=== PATIENT | male | born 1955 | race Caucasian/White ===

== ENCOUNTER 2021-10-13 20:03 | Emergency (ER) | payer MEDICARE ==
[~2021-10-13] VITALS: Ht 177.8 cm; Wt 100.0 kg
[2021-10-13] MEDS ORDERED: cefTRIAXone 1 GM PRE-MIX 50 ML IV ONE (20:15)
[2021-10-13] MEDS ORDERED: LACTATED RINGERS 1,000 ML IV ONE (20:15)
[2021-10-13] MEDS ORDERED: ACETAMINOPHEN 500 MG TAB (TYLENOL) PO PRN (20:15)
[2021-10-13] MEDS ORDERED: AZITHROMYCIN INJECTION 500 MG in NS (IVPB) 250 ML IV ONE (20:15)
[2021-10-13] MEDS ORDERED: ACETAMINOPHEN 500 MG TAB (TYLENOL) PO ONE (20:15)
--- NOTE | 2021-10-13 20:15 | ED General ---
General Stated Complaint: FEVER, BODYACHES Source of Information: Patient Exam Limitations: No Limitations History of Present Illness Date Seen by Provider: Oct 13, 2021 Time Seen by Provider: 20:05 Initial Comments Patient ER by EMS with chief complaint of body aches fevers chills shortness of air. He had a week to 10-day cough nonproductive except for just a little bit of sputum/phlegm. Has had fever T-max of 105. Took some ibuprofen this morning. No nausea or vomiting. No known sick contacts. He says he donates blood every month and had a negative Covid test a couple weeks ago so he did not plan to get checked there. He went to the clinic got some refills of his medications and they thought maybe he had a sinus infection and put him on some antibiotics for that. He does not feel any better. No nausea vomiting or diarrhea. No history of COPD or lung disease. Not a smoker. Allergies and Home Medications Allergies Coded Allergies: No Known Drug Allergies (Unverified , 10/13/21) Patient Home Medication List Home Medication List Reviewed: Yes Review of Systems Review of Systems Constitutional: No chills, No diaphoresis EENTM: No ear discharge, No ear pain Respiratory: cough, phlegm, short of breath Cardiovascular: No chest pain, No edema, No palpitations Gastrointestinal: No abdominal pain, No nausea, No vomiting Genitourinary: No discharge, No dysuria Musculoskeletal: No back pain, No joint pain Skin: No pruritus, No rash Psychiatric/Neurological: Denies Headache, Denies Numbness All Other Systems Reviewed Negative Unless Noted: Yes Past Oviylqx-Hgxyat-Gkpkkg Hx Patient Social History Tobacco Use?: No Use of E-Cig and/or Vaping dev: No Substance use?: No Alcohol Use?: Yes Alcohol type: Beer Alcohol Frequency: Rarely Physical Exam-Suspected Sepsis Physical Exam Vital Signs Vital Signs - First Documented 10/13/21 20:05 Temp 38.2 Pulse 113 Resp 20 B/P (MAP) 161/115 (130) Pulse Ox 95 O2 Delivery Room Air Capillary Refill : Height, Weight, BMI Height: '" Weight: lbs. oz. kg; BMI Method: General Appearance: WD/WN, Mild Distress Eyes: Bilateral Eye Normal Inspection, Bilateral Eye PERRL, Bilateral Eye EOMI HEENT: PERRL/EOMI, Pharynx Normal, Moist Mucous Membranes Neck: Full Range of Motion, Normal Inspection Respiratory: Lungs Clear, Normal Breath Sounds, No Accessory Muscle Use, No Respiratory Distress Cardiovascular: Regular Rate, Rhythm, No Edema, Normal Peripheral Pulses Extremity: Normal Capillary Refill, Normal Inspection, Non Tender, No Pedal Edema Neurologic/Psychiatric: Alert, Oriented x3, No Motor/Sensory Deficits Skin: normal color, warm/dry Focused Exam Lactate Level 10/13/21 20:19: Lactic Acid Level 1.50 Lactic Acid Level Laboratory Tests Test 10/13/21 20:19 Lactic Acid Level 1.50 MMOL/L (0.50-2.00) Progress/Results/Core Measures Suspected Sepsis SIRS Temperature: Pulse: Respiratory Rate: Laboratory Tests 10/13/21 20:19: White Blood Count 5.4 Blood Pressure / Mean: 10/13/21 20:19: Lactic Acid Level 1.50 Laboratory Tests 10/13/21 20:19: Creatinine 1.02, INR Comment 1.0, Platelet Count 245, Total Bilirubin 0.5 Results/Orders Lab Results Laboratory Tests Test 10/13/21 20:10 10/13/21 20:19 Range/Units Influenza Type A (RT-PCR) Detected H Not Detecte Influenza Type B (RT-PCR) Not Detected Not Detecte SARS-CoV-2 RNA (RT-PCR) Detected H Not Detecte White Blood Count 5.4 4.3-11.0 10^3/uL Red Blood Count 4.77 4.30-5.52 10^6/uL Hemoglobin 14.5 13.3-17.7 g/dL Hematocrit 43 40-54 % Mean Corpuscular Volume 90 80-99 fL Mean Corpuscular Hemoglobin 30 25-34 pg Mean Corpuscular Hemoglobin Concent 34 32-36 g/dL Red Cell Distribution Width 13.9 10.0-14.5 % Platelet Count 245 130-400 10^3/uL Mean Platelet Volume 9.5 9.0-12.2 fL Immature Granulocyte % (Auto) 0 % Neutrophils (%) (Auto) 83 H 42-75 % Lymphocytes (%) (Auto) 6 L 12-44 % Monocytes (%) (Auto) 9 0-12 % Eosinophils (%) (Auto) 1 0-10 % Basophils (%) (Auto) 0 0-10 % Neutrophils # (Auto) 4.5 1.8-7.8 10^3/uL Lymphocytes # (Auto) 0.3 L 1.0-4.0 10^3/uL Monocytes # (Auto) 0.5 0.0-1.0 10^3/uL Eosinophils # (Auto) 0.0 0.0-0.3 10^3/uL Basophils # (Auto) 0.0 0.0-0.1 10^3/uL Immature Granulocyte # (Auto) 0.0 0.0-0.1 10^3/uL Neutrophils % (Manual) 89 % Lymphocytes % (Manual) 4 % Monocytes % (Manual) 6 % Eosinophils % (Manual) 1 % Blood Morphology Comment NORMAL Prothrombin Time 13.8 12.2-14.7 SEC INR Comment 1.0 0.8-1.4 Activated Partial Thromboplast Time 33 24-35 SEC Sodium Level 138 135-145 MMOL/L Potassium Level 4.0 3.6-5.0 MMOL/L Chloride Level 105 98-107 MMOL/L Carbon Dioxide Level 22 21-32 MMOL/L Anion Gap 11 5-14 MMOL/L Blood Urea Nitrogen 10 7-18 MG/DL Creatinine 1.02 0.60-1.30 MG/DL Estimat Glomerular Filtration Rate 82 BUN/Creatinine Ratio 10 Glucose Level 95 70-105 MG/DL Lactic Acid Level 1.50 0.50-2.00 MMOL/L Calcium Level 9.2 8.5-10.1 MG/DL Corrected Calcium 9.0 8.5-10.1 MG/DL Total Bilirubin 0.5 0.1-1.0 MG/DL Aspartate Amino Transf (AST/SGOT) 21 5-34 U/L Alanine Aminotransferase (ALT/SGPT) 20 0-55 U/L Alkaline Phosphatase 103 40-136 U/L Total Protein 7.3 6.4-8.2 GM/DL Albumin 4.2 3.2-4.5 GM/DL My Orders Orders - EMMANUEL MONACO Acetaminophen Tablet (Tylenol Tablet) (10/13/21 20:15) Cbc With Automated Diff (10/13/21 20:15) Comprehensive Metabolic Panel (10/13/21 20:15) Blood Culture (10/13/21 20:15) Sputum Culture (10/13/21 20:15) Urinalysis (10/13/21 20:15) Urine Culture (10/13/21 20:15) Protime With Inr (10/13/21 20:15) Partial Thromboplastin Time (10/13/21 20:15) Chest 1 View, Ap/Pa Only (10/13/21 20:15) Acetaminophen Tablet (Tylenol Tablet) (10/13/21 20:15) Ed Iv/Invasive Line Start (10/13/21 20:15) Ed Iv/Invasive Line Start (10/13/21 20:15) Vital Signs Adult Sepsis Patie Q15M (10/13/21 20:15) O2 (10/13/21 20:15) Remove Rings In Anticipation O (10/13/21 20:15) Lactic Acid Analyzer (10/13/21 20:15) Influenza A And B By Pcr (10/13/21 20:15) Lactated Ringers (Lr 1000 Ml Iv Solution (10/13/21 20:15) Ceftriaxone 1 Gm Pre-Mix (Rocephin 1 Gm (10/13/21 20:15) Azithromycin Injection (Zithromax Inject (10/13/21 20:15) Covid 19 Inhouse Test (10/13/21 20:15) Manual Differential (10/13/21 20:19) Medications Given in ED Current Medications Medications Dose Ordered Sig/Danilo Route Start Time Stop Time Status Last Admin Dose Admin Acetaminophen 1,000 mg ONCE ONCE PO 10/13/21 20:15 10/13/21 20:16 DC 10/13/21 20:41 1,000 MG Azithromycin 500 mg/Sodium Chloride 255 ml @ 250 mls/hr ONCE ONCE IV 10/13/21 20:15 10/13/21 21:16 DC 10/13/21 21:35 250 MLS/HR Ceftriaxone Sodium/Dextrose 50 ml @ 100 mls/hr ONCE ONCE IV 10/13/21 20:15 10/13/21 20:44 DC 10/13/21 20:58 100 MLS/HR Lactated Ringer's 1,000 ml @ 0 mls/hr Q0M ONCE IV 10/13/21 20:15 10/13/21 20:18 DC 10/13/21 20:42 1,000 MLS/HR Vital Signs/I&O 10/13/21 20:05 Temp 38.2 Pulse 113 Resp 20 B/P (MAP) 161/115 (130) Pulse Ox 95 O2 Delivery Room Air Capillary Refill : Progress Note #1: Time: 20:14 Progress Note Viral versus bacterial upper respiratory versus lower respiratory tract infection. Oxygenating okay on room air. We will initiate a septic work-up with a cautious liter of fluids and Rocephin and azithromycin. Covid and influenza swabs. Progress Note #2: Time: 21:59 Progress Note Flu and COVID, outside the window for monoclonal antibodies, antivirals, Xofluza etc. We will provide him with some Zofran. He states he is already feeling better after some fluids. His vital signs are no longer septic. He is ready to go home. Diagnostic Imaging Diagonstic Imaging: Xray Plain Films/CT/US/NM/MRI: chest Comments [facility], [place] NAME: KENNA ARAUJO [facility] REC#: [id number] PT STATUS: REG ER : 1955 PHYSICIAN: EMMANUEL MONACO MD ADMIT DATE: 10/13/21/ER Signed Date of Exam:10/13/21 CHEST 1 VIEW, AP/PA ONLY INDICATION: Shortness of breath. Cough and fever. FINDINGS: There are patchy airspace opacities present at the lung bases which are linear and favored to reflect atelectasis. There is no dense alveolar consolidation. There is no effusion or pneumothorax. Heart size is mildly prominent but accentuated by AP technique. There are no current findings of edema or failure. IMPRESSION: Discoid opacities at the lung bases most compatible with atelectasis. The lungs otherwise appear clear. There is no effusion. Pulmonary vascularity appears appropriate. Dictated by: Dictated on workstation # [id number] Dict: 10/13/212026 Trans: 10/13/212056 [facility] [id number] Interpreted by: MOON ISSA MD Electronically signed by: MOON ISSA MD 10/13/212056 Reviewed: Reviewed by Me Departure Impression Primary Impression: Influenza A Additional Impression: COVID-19 Disposition: 01 HOME, SELF-CARE Condition: Stable Departure-Patient Inst. Decision time for Depature: 21:59 Patient Instructions: COVID-19 (DC), Fever, Adult (DC) Add. Discharge Instructions: Drink plenty of fluids. Zofran 1 tablet every 6 hours necessary for nausea or vomiting. Return to the ER for shortness of air with oxygen saturations below 90% while at rest. Follow-up with your primary care doctor. Vapor rubs, humidifiers and rest. Scripts Ondansetron (Ondansetron Odt) 4 Mg Tab.rapdis 4 MG PO Q6H PRN for NAUSEA/VOMITING, #8 TAB 0 Refills Prov: EMMANUEL MONACO 10/13/21 EMMANUEL MONACO Oct 13, 2021 20:15
[2021-10-13 20:30] LABS: BASOPHILS % (AUTO) 0 % (0-10); EOSINOPHILS % (AUTO) 1 % (0-10); HEMATOCRIT 43 % (40-54); HEMOGLOBIN 14.5 g/dL (13.3-17.7); LYMPHOCYTES # (AUTO) 0.3 10^3/uL (1.0-4.0); LYMPHOCYTES % (AUTO) 6 % (12-44); MEAN CORPUSCULAR HEMOGLOBIN 30 pg (25-34); MEAN CORPUSCULAR HGB CONC 34 g/dL (32-36); MEAN CORPUSCULAR VOLUME 90 fL (80-99); MEAN PLATELET VOLUME 9.5 fL (9.0-12.2); MONOCYTES # (AUTO) 0.5 10^3/uL (0.0-1.0); MONOCYTES % (AUTO) 9 % (0-12); NEUTROPHILS # (AUTO) 4.5 10^3/uL (1.8-7.8); NEUTROPHILS % (AUTO) 83 % (42-75); PLATELET COUNT 245 10^3/uL (130-400); WHITE BLOOD COUNT 5.4 10^3/uL (4.3-11.0)
--- NOTE | 2021-10-13 20:30 | Diagnostic Imaging Report ---
INDICATION: Shortness of breath. Cough and fever. FINDINGS: There are patchy airspace opacities present at the lung bases which are linear and favored to reflect atelectasis. There is no dense alveolar consolidation. There is no effusion or pneumothorax. Heart size is mildly prominent but accentuated by AP technique. There are no current findings of edema or failure. IMPRESSION: Discoid opacities at the lung bases most compatible with atelectasis. The lungs otherwise appear clear. There is no effusion. Pulmonary vascularity appears appropriate. Dictated by: Dictated on workstation # [id number]
[2021-10-13 20:45] LABS: PROTHROMBIN TIME PATIENT 13.8 SEC (12.2-14.7)
[2021-10-13 20:46] LABS: ALBUMIN 4.2 GM/DL (3.2-4.5); BILIRUBIN,TOTAL 0.5 MG/DL (0.1-1.0); CALCIUM 9.2 MG/DL (8.5-10.1); CREATININE SERUM 1.02 MG/DL (0.60-1.30); TOTAL PROTEIN 7.3 GM/DL (6.4-8.2)
[2021-10-13 20:54] LABS: EOSINOPHILS % (MANUAL) 1 %; LYMPHOCYTES % (MANUAL) 4 %; MONOCYTES % (MANUAL) 6 %; NEUTROPHILS % (MANUAL) 89 %; RBC MORPH NORMAL
[2021-10-13] MEDS ORDERED: ONDA4TAB11 PO (22:00)
[2021-10-13 22:15] VITALS: BP 111/72
== END 2021-10-13 22:15 | disposition home or self-care (01) ==
LOC: ER 20:08
DX: U07.1 COVID-19 (principal)
CPT/HCPCS: 36415; 71045; 80053; 83605; 85007; 85027; 85610; 85730; 87040; 87636